=== PATIENT | female | born 1960 | race Caucasian/White ===

== ENCOUNTER 2018-12-28 14:32 | Emergency (ER) | payer OTHER ==
--- NOTE | 2018-12-28 15:42 | ED Physician Chart ---
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 Pain, A/N/V/D/C, fever , chills, back pain, pelvic pain, hip pain, or urinary s/s; pt's last tetanus shot: < 5 years; UTD; LNMP: 2 years ago; pt is 2 years post-menopausal; pt denies ; pt is eating and urinating well; pt last urinated one hour TECHNICAL PROGRAM MANAGER Allergies:: Allergies Allergy/AdvReac Type Severity Reaction Status Date / Time No Known Allergies Allergy Verified 12/28/18 15:14 Vitals:: Vital Signs - 8 hr 12/28/18 14:51 HR 62 RR 18 BP 118/62 O2 Sat % 98 Historian:: Patient Review:: Nurse's Note Reviewed, Old Chart Reviewed ED Review of Systems - Review of Systems General/Constitutional: No fever, No chills, No weight loss, No weakness, No diaphoresis, No edema, No loss of appetite Skin: No skin lesions, No rash, No bruising Head: No headache, No light-headedness Eyes: No loss of vision, No pain, No diplopia ENT: No earache, No nasal drainage, No sore throat, No tinnitus Neck: No neck pain, No swelling, No thyromegaly, No stiffness, No mass noted Cardio Vascular: No chest pain, No palpitations, No PND, No orthopnea, No edema Pulmonary: No SOB, No cough, No sputum, No wheezing GI: No nausea, No vomiting, No diarrhea, No pain, No melena, No hematochezia, No constipation, No hematemesis G/U: No dysuria, No frequency, No hematuria, No nacturia Scientific Specialist: No vaginal discharge, No abnormal vaginal bleed, No contraction Musculoskeletal: No bone or joint pain, No back pain, No muscle pain Endocrine: No polyuria, No polydipsia Psychiatric: No prior psych history, No depression, No anxiety, No suicidal ideation, No homicidal ideation, No auditory hallucination, No visual hallucination Hematopoietic: No bruising, No lymphadenopathy Allergic/Immuno: No urticaria, No angioedema Neurological: No syncope, No focal symptoms, No weakness, No paresthesia, No headache, No seizure, No dizziness, No confusion, No vertigo ED Past Medical History - Past Medical History Obtainable: Yes Past Medical History: DM, Other (Brain Tumor) Family History: Diabetes Melitus Social History: Non Smoker, No Alcohol, No Drug Use, , Employed Surgical History: None, other (Right Craniotomy) Psychiatricy History: None Medication: Reviewed ED Physical Exam - Physical Examination General/Constitutional: Awake, Well-developed, well-nourished, Alert, No distress, GCS 15, Non-toxic appearing, Ambulatory Head: Atraumatic Eyes: Lids, conjuctiva normal, PERRL, EOMI Skin: Nl inspection, No rash, No skin lesions, No ecchymosis, Well hydrated, No lymphadenopathy Other Skin comments:: Scattered Contusions and Abrasions; no FBs; no cellulitis; good motor, tendon, and sensory functions; good NV functions ENMT: External ears, nose nl, TM canals nl, Nasal exam nl, Lips, teeth, gums nl , Oropharynx nl, Tonsils nl Neck: Nontender, Full ROM w/o pain, No JVD, No nuchal rigidity, No bruit, No mass, No stridor Respiratory: Nl effort/Exclusion, Clear to Auscultation, No Wheeze/Rhonchi/Rales Cardio Vascular: RRR, No murmur, gallop, rubs, NL S1 S2 GI: No tenderness/rebounding/guarding, No organomegaly, No hernia, Normal BS's, Nondistended, No mass/bruits, No McBurney tenderness : No CVA tenderness Extremities: No tenderness or effusion, Full ROM, normal strength in all extremities, No edema, Normal digits & nails Other Extremities comments:: no joint tenderness; full active ROMs of all joints; no septic joints; Gait: WNL ; DTRs: 2+ bilaterally; no FBs; no cellulitis; good motor, tendon, and sensory functions; good NV functions Neuro/Psych: Alert/oriented, DTR's symmetric, Normal sensory exam, Normal motor strength, Judgement/insight normal, Mood normal, Normal gait, No focal deficits Misc: Normal back, No paraspinal tenderness ED Labs/Radiology/EKG Results - Lab Results Comments:: Reviewed - Radiology Results Comments:: + Sinusitis; S/P Right Craniotomy; Left Thyroid Mass; NAD ED Septic Shock - . Is Septic Shock (SBP<90, OR Lactate>4 mmol\L) present?: No - <6hrs of presentation: Vital Signs: Vital Signs - 8 hr 12/28/18 14:51 HR 62 RR 18 BP 118/62 O2 Sat % 98 ED Reassessment (Disposition) - Reassessment Reassessment:: pt tolerated po fluids well in ER; pt is asymptomatic upon discharge Reassessment Condition:: Improved - Diagnosis Diagnosis:: Accidental Fall; Contusions and Abrasions; Sprains and Strains; Sinusitis; Left Thyroid Mass; S/P Craniotomy; DM - Aftercare/Follow up Instructions Aftercare/Follow-Up Instructions:: Counseled pt regarding lab results/diagnosis & need follow up, Refer to Discharge Instructions, Counseled pt & family regarding lab results/diagnosis & need follow up Medication Prescribed:: Rx: Keflex 500mg po qid x 10 days; Neosporin Ointment bid x 14 days; Cool Mist Vaporizer; take all medications as prescribed - Patient Disposition Discharge/Transfer:: Home Condition at Disposition:: Stable, Improved (X-Rays Instructions; RTER prn if existing s/s reoccur and/or get worse and/or any other new s/s occur; ACIs given for all above Dx; Refer to ENT Specialist/Orthopedist/Neurosurgeon/ Emergency Detail Driver/Facial/Plastic Surgeon/Commercial Painter TIMOTHY; F/U with PMD in one day or prn; RTER prn if concerned)
--- NOTE | 2018-12-29 08:27 | Diagnostic Imaging Report ---
Exam: CT examination of brain. HISTORY: Trauma Total DLP equals 707 CTDI equals 37.8 Findings: Multiple contiguous thin section of the brain were obtained from the base of skull to the vertex without the administration of contrast material, no prior studies available comparison. The study demonstrates no evidence for hemorrhage or midline shift or edema. There is evidence of previous right temporoparietal craniotomy, craniectomy changes with encephalomalacia in the right temporal lobe. The digital system is intact. The bony calvarium demonstrates extensive sinusitis, complete opacification of the left maxillary sinus. IMPRESSION: Postoperative changes status post right temporoparietal craniotomy changes, right temporal lobe encephalomalacia, postoperative changes. Extensive sinusitis.
--- NOTE | 2018-12-29 08:28 | Diagnostic Imaging Report ---
CT scan cervical spine History: Trauma Total DLP equals 524 CTDI equals 27.5 Axial sections were obtained through the cervical spine region. Additional sagittal and coronal reformatted images are provided. No focal bony lesions are seen. Specifically, no fractures are identified. There is limited visualization of the margins of the cervical spinal cord. No obvious extradural soft tissue abnormalities are seen. The prevertebral soft tissues appear normal. Impression: No acute abnormalities
--- NOTE | 2018-12-29 08:31 | Diagnostic Imaging Report ---
Exam: CT examination of facial bones. HISTORY: Trauma Total DLP equals 602 CTDI equals 20.9 Findings: Multiple contiguous thin section of facial bones obtained on obtained with coronal and sagittal construction technique. The study demonstrates no evidence of fracture or dislocation. The mandible and maxillary intact. Extensive sinusitis maxillary and versus appreciated. The zygomatic arches are normal. The optic globes and orbits are intact. Nasal bones are normal. Incidentally noted is enlargement of left thyroid lobe low-density area ultrasound examination recommended. IMPRESSION: Essentially unremarkable examination of facial bones. Question of left lobe of thyroid mass. Ultrasound summation recommended.
== END 2018-12-28 17:49 | disposition home or self-care (01) ==
LOC: ER 14:32
DX: S13.4XXA Sprain of ligaments of cervical spine, initial encounter (principal); S16.1XXA Strain of muscle, fascia and tendon at neck level, initial encounter; J32.9 Chronic sinusitis, unspecified; E07.9 Disorder of thyroid, unspecified; E11.9 Type 2 diabetes mellitus without complications; Z98.890 Other specified postprocedural states; W18.39XA Other fall on same level, initial encounter; Y93.89 Activity, other specified; Y92.89 Other specified places as the place of occurrence of the external cause; Y99.8 Other external cause status
CPT/HCPCS: 70450-TC; 70486-TC; 72125-TC; 81025-TC